=== PATIENT | male | born 1940 | race Caucasian/White ===

== ENCOUNTER 2018-09-28 07:51 | Day surgery (SDC) | payer MEDICARE ==
[2018-09-28 08:34] LABS: ADD MAN DIFF? NO
[2018-09-28 08:36] LABS: WHITE BLOOD COUNT 11.2 10^3/ul (4.8-10.8)
[2018-09-28 08:36] LABS: BASOPHILS % 0.3 % (0.0-2.0); EOSINOPHILS # 0.5 10^3/ul (0.0-0.5); EOSINOPHILS % 4.1 % (0.0-7.0); HEMATOCRIT 45.9 % (42.0-52.0); HEMOGLOBIN 14.8 g/dl (14.0-18.0); LYMPHOCYTES # 4.6 10^3/ul (0.8-2.9); LYMPHOCYTES % 40.7 % (15.0-51.0); MEAN CORPUSCULAR HEMOGLOBIN 25.7 pg (29.0-33.0); MEAN CORPUSCULAR HGB CONC 32.2 g/dl (32.0-37.0); MEAN CORPUSCULAR VOLUME 79.8 fl (82.0-101.0); MEAN PLATELET VOLUME 10.1 fl (7.4-10.4); MONOCYTE # 0.9 10^3/ul (0.3-0.9); MONOCYTES % 8.3 % (0.0-11.0); NEUTROPHIL # 5.2 10^3/ul (1.6-7.5); NEUTROPHILS % 46.2 % (39.0-77.0); PLATELET COUNT 139 10^3/UL (140-415); POSITIVE DIFF @See below; RED BLOOD COUNT 5.75 10^6/ul (4.70-6.10); RED CELL DISTRIBUTION WIDTH 13.7 % (11.5-14.5)
[2018-09-28 08:55] LABS: ANION GAP 12 (5-13); CALCIUM 9.5 mg/dl (8.4-10.2); CARBON DIOXIDE 27 mmol/L (21-31); CHLORIDE 105 mmol/L (97-110); CHOL/HDL RATIO 2.8 RATIO; CHOLESTEROL 127 mg/dl (100-200); GLUCOSE 97 mg/dl (70-220); HDL CHOLESTEROL 44 mg/dl (31-75); LDL CHOLESTEROL,CALCULATED 55 mg/dl; POTASSIUM 4.4 mmol/L (3.5-5.1); SODIUM 144 mmol/L (135-144); TRIGLYCERIDES 140 mg/dl (0-149)
[2018-09-28 08:56] LABS: PROTIME 12.3 Sec (11.9-14.9)
[2018-09-28 08:57] LABS: PARTIAL THROMBOPLASTIN TIME 29.2 Sec (23.0-35.0)
[2018-09-28 09:00] LABS: BLOOD UREA NITROGEN 26 mg/dl (7-20)
[2018-09-28] MEDS ORDERED: SOD CHLORIDE 0.45% 1,000 ML IV (10:30)
[2018-09-28] MEDS ORDERED: DIPHENHYDRAMINE 50 MG CAP PO (10:30)
[2018-09-28] MEDS ORDERED: DIAZEPAM 5 MG TAB PO (10:30)
[2018-09-28] MEDS ORDERED: FAMOTIDINE 20 MG TAB PO (10:30)
[2018-09-28] MEDS ORDERED: LIDOCAINE 1% (MDV) 20 ML INJ (10:34)
[2018-09-28] MEDS ORDERED: MIDAZOLAM 1 MG/ML 2 ML INJ (10:34)
[2018-09-28] MEDS ORDERED: IODIXANOL LOCM 100 ML BTL ×2 (10:34→11:34)
[2018-09-28] MEDS ORDERED: FENTAnyl 50 MCG/ML VIAL (10:34)
[2018-09-28] MEDS ORDERED: HEPARIN 1000 UNITS/ML 10 ML INJ (10:34)
[2018-09-28] MEDS ORDERED: NITROGLYCERIN (IC) 100 MCG/ML INJ (11:08)
[2018-09-28] MEDS ORDERED: SOD CHLORIDE 0.9% 1,000 ML IV (11:31)
[2018-09-28] MEDS ORDERED: AL HYDROX/MG HYDROX/SIMETH 30 ML CUP PO (12:00)
[2018-09-28] MEDS ORDERED: morphine 2 MG INJ IV (12:00)
[2018-09-28] MEDS ORDERED: ONDANSETRON 4 MG INJ IV (12:00)
[2018-09-28] MEDS ORDERED: ACETAMINOPHEN 325 MG TAB PO (12:00)
== END 2018-09-28 18:00 | disposition home or self-care (01) ==
LOC: SDS 07:51
DX: I25.10 Atherosclerotic heart disease of native coronary artery without angina pectoris (principal); I10 Essential (primary) hypertension
CPT/HCPCS: 71045; 80048; 80061; 85025; 85610; 85730; 93005